=== PATIENT | male | born 1995 | race Caucasian/White ===

== ENCOUNTER 2018-01-31 13:15 | Emergency (ER) | payer OTHER ==
[~2018-01-31] VITALS: Ht 170.2 cm; Wt 50.8 kg
[~2018-01-31 13:15] MED LIST: NOHOMEMEDICATIONS
[2018-01-31 13:59] LABS: INFLUENZA A ANTIGEN None Detected (None Detect); INFLUENZA B ANTIGEN None Detected (None Detect)
[2018-01-31] MEDS ORDERED: CLEOCIN HCL150 MG PO (14:03)
[2018-01-31 14:10] VITALS: BP 118/87
== END 2018-01-31 14:15 | disposition home or self-care (01) ==
LOC: M.ERS 13:15
PROVIDERS: Nurse Practitioner Family
DX: J01.00 Acute maxillary sinusitis, unspecified (principal); Z88.1 Allergy status to other antibiotic agents

== ENCOUNTER 2018-05-08 00:21 | Emergency (ER) | payer OTHER ==
[~2018-05-08] VITALS: Ht 167.6 cm; Wt 50.8 kg
[~2018-05-08 00:21] MED LIST changes: +CLEOCIN HCL150 MG PO
[2018-05-08 00:29] VITALS: BP 101/57
[2018-05-08] MEDS ORDERED: LAMICTAL 25 MG25 M1 (00:36)
[2018-05-08] MEDS ORDERED: BIKTARVY 50-201 EACH (00:36)
[2018-05-08] MEDS ORDERED: VITAMIN D5000 UNIT (00:37)
[2018-05-08] MEDS ORDERED: IRON325 (00:37)
[2018-05-08] MEDS ORDERED: CEFDINIR300 MG PO (00:49)
[2018-05-08] MEDS ORDERED: Magic Mouthwash PO (00:49)
== END 2018-05-08 00:52 | disposition home or self-care (01) ==
LOC: M.ERS 00:21
DX: J02.9 Acute pharyngitis, unspecified (principal); F31.9 Bipolar disorder, unspecified; F41.9 Anxiety disorder, unspecified; F17.210 Nicotine dependence, cigarettes, uncomplicated; Z88.0 Allergy status to penicillin